=== PATIENT | male | born 1925 | race Caucasian/White ===

== ENCOUNTER 2017-02-03 01:27 | Inpatient (IN) | payer OTHER, BC ==
[2017-02-03] VITALS (9 sets, daily range): BP systolic 116–144; BP diastolic 62–85
[~2017-02-03] VITALS: Ht 165.1 cm; Wt 74.3 kg
[~2017-02-03 01:27] MED LIST: ATENOLOL25 MG PO; ATORVASTATIN CA20 MG PO; B COMPLETE1 EACH PO; BACTRIM,SEPT1 TABLET PO; COLACE100 MG PO; FISH OIL 1,0001 EAC7 PO; FLOMAX0.4 MG PO; HYDROCODON-ACE1 EAC7 PO; LO-DOSE ASPIRIN81 M1 PO; NORCO 5/3251 TABLET PO; PRESERVISION A1 EAC2 PO; TAMSULOSIN HCL0.4 MG PO
[2017-02-03 02:18] LABS: HEMATOCRIT 23.1 % (38.0-50.0); MCH 30.9 PG (29.0-34.0); MCHC 33.3 G/DL (30.0-36.0); MCV 92.8 FL (86-99); MEAN PLAT.VOLUME 10.9 uM^3 (9.0-12.4); PLATELET COUNT 179 K/uL (156-360); RBC DIS.WIDTH-CV 13.5 % (11.8-14.6); RBC DIS.WIDTH-SD 46.1 % (39-53); RED BLOOD COUNT 2.49 M/uL (4.00-5.50); WHITE BLOOD COUNT 8.7 K/uL (4.1-10.2)
[2017-02-03 02:30] LABS: CHLORIDE 108 mEq/L (99-109)
[2017-02-03 02:31] LABS: POTASSIUM 3.1 mEq/L (3.7-5.4); SODIUM 142 mEq/L (136-147)
[2017-02-03 02:32] LABS: GLUCOSE 118 mg/dL (70-99)
[2017-02-03 02:34] LABS: ANION GAP 10 MEQ/L (2-14)
[2017-02-03 02:36] LABS: GFR ESTIMATE (CALCULATED) 55 mL/min/
[2017-02-03 02:37] LABS: UREA NITROGEN (BUN) 24 mg/dL (9-23)
[2017-02-03 02:53] LABS: PROTHROMBIN TIME 11.9 SEC (10.2-12.9)
[2017-02-03 02:55] LABS: PTT 26.5 SEC (25-37)
[2017-02-03 02:59] LABS: TOTAL BILIRUBIN 0.6 mg/dL (0.0-1.0)
[2017-02-03 03:00] LABS: ALKALINE PHOSPHATASE 64 IU/L (3-129)
[2017-02-03 03:03] LABS: DIRECT BILIRUBIN 0.2 mg/dL (0.0-0.3)
[2017-02-03 03:04] LABS: LIPASE 20 U/L (1.0-51.0)
[2017-02-03 03:07] LABS: TROP-I INTERPRETATION NEGATIVE; TROPONIN-I < 0.01 ng/mL (0.0-0.30)
[2017-02-03] MEDS ORDERED: MUPIROCIN15 GM TP (05:55)
[2017-02-03] MEDS ORDERED: PROSCAR5 MG PO (06:31)
[2017-02-03] MEDS ORDERED: SEROQUEL12.5 MG PO (06:33)
[2017-02-03] MEDS ORDERED: CALCIUM 500 +1 EACH PO (06:33)
[2017-02-03] MEDS ORDERED: CASODEX50 MG PO (06:34)
[2017-02-03] MEDS ORDERED: CALCIUM 250+D1 EACH PO (06:36)
[2017-02-03 13:21] LABS: HEMATOCRIT 29.3 % (38.0-50.0); MCV 92.4 FL (86-99)
[2017-02-03 20:22] LABS: HEMATOCRIT 27.6 % (38.0-50.0); MCV 91.4 FL (86-99)
[2017-02-04 03:53] VITALS: BP 102/61
[2017-02-04 06:27] LABS: HEMATOCRIT 27.4 % (38.0-50.0); MCH 30.8 PG (29.0-34.0); MCHC 33.2 G/DL (30.0-36.0); MCV 92.9 FL (86-99); PLATELET COUNT 162 K/uL (156-360); RBC DIS.WIDTH-CV 14.8 % (11.8-14.6); RBC DIS.WIDTH-SD 50.3 % (39-53); RED BLOOD COUNT 2.95 M/uL (4.00-5.50); WHITE BLOOD COUNT 9.8 K/uL (4.1-10.2)
[2017-02-04 06:58] LABS: ANION GAP 6 MEQ/L (2-14); CHLORIDE 112 MEQ/L (99-109); GFR ESTIMATE (CALCULATED) > 59 mL/min/; GLUCOSE 103 mg/dL (70-99); SAMPLE HEMOLYSIS CHECK 0; SAMPLE ICTERIC CHECK 0; SAMPLE LIPEMIA CHECK 0; SODIUM 144 MEQ/L (136-147); UREA NITROGEN (BUN) 12 mg/dL (9-23)
[2017-02-04 06:59] LABS: POTASSIUM 4.3 MEQ/L (3.7-5.4)
[2017-02-04 07:48] VITALS: BP 120/61
[2017-02-04 11:36] LABS: HEMATOCRIT 28.9 % (38.0-50.0); MCV 93.2 FL (86-99)
[2017-02-04 12:04] VITALS: BP 91/51
[2017-02-04 16:07] VITALS: BP 133/67
[2017-02-04 20:41] LABS: HEMATOCRIT 27.6 % (38.0-50.0); MCV 93.2 FL (86-99)
[2017-02-04 20:56] LABS: CHLORIDE 111 mEq/L (99-109); SODIUM 144 mEq/L (136-147)
[2017-02-04 20:58] LABS: GLUCOSE 101 mg/dL (70-99)
[2017-02-04 20:59] LABS: ANION GAP 8 MEQ/L (2-14)
[2017-02-04 21:02] LABS: GFR ESTIMATE (CALCULATED) > 59 mL/min/
[2017-02-04 21:03] LABS: UREA NITROGEN (BUN) 12 mg/dL (9-23)
[2017-02-04 23:10] VITALS: BP 108/58
[2017-02-05 08:16] VITALS: BP 148/73
[2017-02-05 08:58] LABS: HEMATOCRIT 29.3 % (38.0-50.0); MCHC 32.8 G/DL (30.0-36.0); MCV 91.6 FL (86-99); MEAN PLAT.VOLUME 10.9 uM^3 (9.0-12.4); PLATELET COUNT 198 K/uL (156-360); RBC DIS.WIDTH-CV 14.4 % (11.8-14.6); RBC DIS.WIDTH-SD 48.6 % (39-53); WHITE BLOOD COUNT 8.3 K/uL (4.1-10.2)
[2017-02-05 16:30] VITALS: BP 143/62
[2017-02-05 23:06] VITALS: BP 144/67
[2017-02-06 06:20] LABS: HEMATOCRIT 27.8 % (38.0-50.0); MCH 30.4 PG (29.0-34.0); MCHC 33.5 G/DL (30.0-36.0); MCV 90.8 FL (86-99); MEAN PLAT.VOLUME 10.6 uM^3 (9.0-12.4); PLATELET COUNT 186 K/uL (156-360); RBC DIS.WIDTH-CV 14.1 % (11.8-14.6); RED BLOOD COUNT 3.06 M/uL (4.00-5.50); WHITE BLOOD COUNT 8.2 K/uL (4.1-10.2)
[2017-02-06 08:01] VITALS: BP 149/70
[2017-02-06 16:22] VITALS: BP 132/81
[2017-02-07 05:54] LABS: HEMATOCRIT 28.4 % (38.0-50.0); IMM.RETIC FRACTION 25.7 % (3-19); MCH 29.8 PG (29.0-34.0); MCHC 32.7 G/DL (30.0-36.0); MEAN PLAT.VOLUME 10.7 uM^3 (9.0-12.4); PLATELET COUNT 212 K/uL (156-360); RBC DIS.WIDTH-CV 13.8 % (11.8-14.6); RBC DIS.WIDTH-SD 45.9 % (39-53); RED BLOOD COUNT 3.12 M/uL (4.00-5.50); RETIC HGB EQUIVALENT 28.9 (28-36); RETICULOCYTE COUNT 3.1 % (0.5-1.8); WHITE BLOOD COUNT 8.2 K/uL (4.1-10.2)
[2017-02-07 06:19] LABS: PREALBUMIN 12.4 mg/dL (10-40)
[2017-02-07 07:38] LABS: ERTH.SED.RATE 7 MM/HR (0-20)
[2017-02-07 07:41] VITALS: BP 143/92
[2017-02-07 08:14] LABS: FERRITIN 20 NG/ML (22-322)
[2017-02-07 08:28] LABS: GFR ESTIMATE (CALCULATED) > 59 mL/min/; MAGNESIUM 1.9 mg/dl (1.3-2.7); POTASSIUM 3.6 MEQ/L (3.7-5.4); UREA NITROGEN (BUN) 6 mg/dL (9-23)
[2017-02-07 15:53] VITALS: BP 167/94
[2017-02-07 23:22] VITALS: BP 140/89
[2017-02-08 03:34] VITALS: BP 160/82
[2017-02-08 06:11] LABS: HEMATOCRIT 30.6 % (38.0-50.0); MCH 29.3 PG (29.0-34.0); MCHC 32.7 G/DL (30.0-36.0); MCV 89.7 FL (86-99); MEAN PLAT.VOLUME 10.7 uM^3 (9.0-12.4); NRBC (%) 0.1 /100 WBC (0-0); PLATELET COUNT 247 K/uL (156-360); RBC DIS.WIDTH-CV 13.5 % (11.8-14.6); RBC DIS.WIDTH-SD 44.2 % (39-53); RED BLOOD COUNT 3.41 M/uL (4.00-5.50); WHITE BLOOD COUNT 14.1 K/uL (4.1-10.2)
[2017-02-08 06:35] LABS: ANION GAP 13 MEQ/L (2-14); CHLORIDE 108 MEQ/L (99-109); GFR ESTIMATE (CALCULATED) > 59 mL/min/; GLUCOSE 85 mg/dL (70-99); POTASSIUM 3.5 MEQ/L (3.7-5.4); SAMPLE HEMOLYSIS CHECK 0; SAMPLE ICTERIC CHECK 0; SAMPLE LIPEMIA CHECK 0; SODIUM 144 MEQ/L (136-147); UREA NITROGEN (BUN) 8 mg/dL (9-23)
[2017-02-08 07:58] LABS: MAGNESIUM 1.8 mg/dl (1.3-2.7)
[2017-02-08 08:12] VITALS: BP 142/80
[2017-02-08 08:17] LABS: TROP-I INTERPRETATION NEGATIVE; TROPONIN-I 0.08 ng/mL (0.0-0.30)
[2017-02-08] MEDS ORDERED: DUREZOL 0.100 DROP/5 LEFT EYE (15:36)
[2017-02-08 15:55] VITALS: BP 154/75
[2017-02-08 23:30] VITALS: BP 119/67
[2017-02-09 04:27] VITALS: BP 137/83
[2017-02-09 08:01] VITALS: BP 140/77
[2017-02-09 08:37] LABS: HEMATOCRIT 29.1 % (38.0-50.0); MCH 30.4 PG (29.0-34.0); MCHC 33.7 G/DL (30.0-36.0); MCV 90.4 FL (86-99); MEAN PLAT.VOLUME 10.7 uM^3 (9.0-12.4); PLATELET COUNT 241 K/uL (156-360); RBC DIS.WIDTH-CV 13.6 % (11.8-14.6); RBC DIS.WIDTH-SD 45.2 % (39-53); RED BLOOD COUNT 3.22 M/uL (4.00-5.50); WHITE BLOOD COUNT 15.1 K/uL (4.1-10.2)
[2017-02-09 11:55] VITALS: BP 133/73
[2017-02-09 13:38] LABS: ANION GAP 11 MEQ/L (2-14); CHLORIDE 108 MEQ/L (99-109); GFR ESTIMATE (CALCULATED) > 59 mL/min/; GLUCOSE 136 mg/dL (70-99); POTASSIUM 3.7 MEQ/L (3.7-5.4); SAMPLE HEMOLYSIS CHECK 0; SAMPLE ICTERIC CHECK 0; SAMPLE LIPEMIA CHECK 0; SODIUM 141 MEQ/L (136-147); UREA NITROGEN (BUN) 15 mg/dL (9-23)
[2017-02-09 16:31] VITALS: BP 136/77
[2017-02-09 20:05] VITALS: BP 141/75
[2017-02-09 23:51] VITALS: BP 143/79
[2017-02-10 04:12] VITALS: BP 126/70
[2017-02-10 08:12] VITALS: BP 137/78
[2017-02-10 08:45] LABS: COLOR BLOODY ((YELLOW)); LEUKOCYTES TRACE
[2017-02-10 08:53] LABS: ADD MIUA? YES; BILIRUBIN NEGATIVE; BLOOD LARGE; GLUCOSE (STRIP) NEGATIVE; KETONES 80; NITRITE NEGATIVE; PROTEIN (STRIP) 100; UROBILINOGEN 0.2 MG/DL (0.2-1.0)
[2017-02-10 08:54] LABS: RED BLOOD CELLS TNTC /HPF (0-5)
[2017-02-10 11:33] VITALS: BP 143/71
[2017-02-10 15:52] VITALS: BP 154/79
[2017-02-10 20:21] VITALS: BP 137/81
[2017-02-10 23:46] VITALS: BP 155/72
[2017-02-11 07:00] LABS: HEMATOCRIT 28.1 % (38.0-50.0); MCH 31.6 PG (29.0-34.0); MCHC 34.5 G/DL (30.0-36.0); MCV 91.5 FL (86-99); MEAN PLAT.VOLUME 10.7 uM^3 (9.0-12.4); PLATELET COUNT 262 K/uL (156-360); RBC DIS.WIDTH-SD 46.6 % (39-53); RED BLOOD COUNT 3.07 M/uL (4.00-5.50); WHITE BLOOD COUNT 11.6 K/uL (4.1-10.2)
[2017-02-11 07:42] VITALS: BP 129/71
[2017-02-11 07:56] LABS: ANION GAP 8 MEQ/L (2-14); CHLORIDE 113 MEQ/L (99-109); GFR ESTIMATE (CALCULATED) > 59 mL/min/; GLUCOSE 100 mg/dL (70-99); POTASSIUM 3.2 MEQ/L (3.7-5.4); SAMPLE HEMOLYSIS CHECK 0; SAMPLE ICTERIC CHECK 0; SAMPLE LIPEMIA CHECK 0; SODIUM 147 MEQ/L (136-147); UREA NITROGEN (BUN) 21 mg/dL (9-23)
[2017-02-11 11:57] LABS: MAGNESIUM 2.2 mg/dl (1.3-2.7)
[2017-02-11 15:40] VITALS: BP 129/64
[2017-02-11 23:37] VITALS: BP 146/69
[2017-02-12 03:59] VITALS: BP 146/72
[2017-02-12 08:12] VITALS: BP 149/77
[2017-02-12 08:37] LABS: HEMATOCRIT 29.3 % (38.0-50.0); MCH 30.7 PG (29.0-34.0); MCHC 33.4 G/DL (30.0-36.0); MCV 91.8 FL (86-99); MEAN PLAT.VOLUME 10.5 uM^3 (9.0-12.4); PLATELET COUNT 282 K/uL (156-360); RBC DIS.WIDTH-CV 14.3 % (11.8-14.6); RBC DIS.WIDTH-SD 47.9 % (39-53); RED BLOOD COUNT 3.19 M/uL (4.00-5.50)
[2017-02-12 09:09] LABS: ANION GAP 9 MEQ/L (2-14); CHLORIDE 111 MEQ/L (99-109); GFR ESTIMATE (CALCULATED) > 59 mL/min/; GLUCOSE 101 mg/dL (70-99); POTASSIUM 3.3 MEQ/L (3.7-5.4); SAMPLE HEMOLYSIS CHECK 0; SAMPLE ICTERIC CHECK 0; SAMPLE LIPEMIA CHECK 0; SODIUM 147 MEQ/L (136-147); UREA NITROGEN (BUN) 14 mg/dL (9-23)
[2017-02-12 12:08] VITALS: BP 126/69
[2017-02-12 15:42] VITALS: BP 141/78
[2017-02-12 19:51] VITALS: BP 144/86
[2017-02-13 04:01] VITALS: BP 147/79
[2017-02-13 08:00] VITALS: BP 142/89
[2017-02-13 11:27] LABS: MAGNESIUM 2.1 mg/dl (1.3-2.7)
[2017-02-13 12:10] VITALS: BP 116/80
[2017-02-13 12:16] LABS: ANION GAP 7 MEQ/L (2-14); CHLORIDE 110 MEQ/L (99-109); GFR ESTIMATE (CALCULATED) > 59 mL/min/; GLUCOSE 107 mg/dL (70-99); POTASSIUM 3.5 MEQ/L (3.7-5.4); SAMPLE HEMOLYSIS CHECK 0; SAMPLE ICTERIC CHECK 0; SAMPLE LIPEMIA CHECK 0; SODIUM 146 MEQ/L (136-147); UREA NITROGEN (BUN) 9 mg/dL (9-23)
[2017-02-13 15:59] VITALS: BP 125/63
[2017-02-13 19:30] VITALS: BP 121/63
[2017-02-14 03:17] VITALS: BP 151/87
[2017-02-14 08:38] VITALS: BP 131/64
[2017-02-14 12:13] VITALS: BP 131/62
[2017-02-14 19:30] VITALS: BP 147/78
[2017-02-14 23:30] VITALS: BP 155/82
[2017-02-15 04:45] VITALS: BP 136/74
[2017-02-15 08:07] VITALS: BP 128/82
[2017-02-15 11:58] VITALS: BP 111/74
[2017-02-15 15:37] VITALS: BP 118/58
[2017-02-15 19:45] VITALS: BP 118/71
[2017-02-15 23:21] VITALS: BP 136/70
[2017-02-16 04:33] VITALS: BP 125/77
[2017-02-16 08:15] VITALS: BP 101/68
[2017-02-16 08:27] LABS: HEMATOCRIT 30.3 % (38.0-50.0); MCH 30.7 PG (29.0-34.0); MCHC 33.3 G/DL (30.0-36.0); MCV 92.1 FL (86-99); MEAN PLAT.VOLUME 10.4 uM^3 (9.0-12.4); PLATELET COUNT 312 K/uL (156-360); RBC DIS.WIDTH-CV 15.2 % (11.8-14.6); RBC DIS.WIDTH-SD 49.2 % (39-53); RED BLOOD COUNT 3.29 M/uL (4.00-5.50); WHITE BLOOD COUNT 11.1 K/uL (4.1-10.2)
[2017-02-16 08:47] LABS: ANION GAP 7 MEQ/L (2-14); CHLORIDE 108 MEQ/L (99-109); SAMPLE HEMOLYSIS CHECK 0; SAMPLE ICTERIC CHECK 0; SAMPLE LIPEMIA CHECK 0; SODIUM 146 MEQ/L (136-147)
[2017-02-16 08:53] LABS: GFR ESTIMATE (CALCULATED) > 59 mL/min/; GLUCOSE 97 mg/dL (70-99); UREA NITROGEN (BUN) 7 mg/dL (9-23)
[2017-02-16 11:29] VITALS: BP 102/52
[2017-02-16] MEDS ORDERED: VERAPAMIL HCL180 MG PO (13:12)
[2017-02-16 15:25] VITALS: BP 120/79
== END 2017-02-16 15:48 | disposition home or self-care (01) | DRG 713 ==
LOC: EME 01:27 → 3EAST 05:35 → EDOF 05:35 → ENRESERV 05:36 → 3EAST 07:13
PROVIDERS: Emergency Medicine; Hospitalist; Internal Medicine; Internal Medicine Hematology & Oncology; Physician Assistant
PROC: 30233N1 Transfusion of Nonautologous Red Blood Cells into Peripheral Vein, Percutaneous Approach (ICD-10-PCS; principal; 2017-02-03)
PROC: 0VB08ZZ Excision of Prostate, Via Natural or Artificial Opening Endoscopic (ICD-10-PCS; 2017-02-03)
DX: C61 Malignant neoplasm of prostate (principal); F02.81 Dementia in other diseases classified elsewhere, unspecified severity, with behavioral disturbance; D62 Acute posthemorrhagic anemia; R31.0 Gross hematuria; N40.0 Benign prostatic hyperplasia without lower urinary tract symptoms; I10 Essential (primary) hypertension; F05 Delirium due to known physiological condition; J98.11 Atelectasis; E78.5 Hyperlipidemia, unspecified; R33.9 Retention of urine, unspecified; I45.10 Unspecified right bundle-branch block; G30.9 Alzheimer's disease, unspecified; E87.6 Hypokalemia; F01.50 Vascular dementia, unspecified severity, without behavioral disturbance, psychotic disturbance, mood disturbance, and anxiety; D72.829 Elevated white blood cell count, unspecified; N32.89 Other specified disorders of bladder; R00.0 Tachycardia, unspecified; Z92.3 Personal history of irradiation; Z80.42 Family history of malignant neoplasm of prostate; Z79.899 Other long term (current) drug therapy; Z79.82 Long term (current) use of aspirin; Z90.79 Acquired absence of other genital organ(s); Z87.442 Personal history of urinary calculi; Z85.46 Personal history of malignant neoplasm of prostate
CPT/HCPCS: 70450; 71010; 80048; 80048 91; 80076; 81003; 82565; 82607; 82728; 82746; 83690; 83735; 84132; 84134; 84484; 84520; 85014; 85018; 85027; 85045; 85610; 85651; 85730; 86140; 86850; 86900; 86901; 86920; 87040; 87086; 93005; 94799; 97530 GP; 99281; 99285; J0330; J1580; J1630; J2060; J2270; J3010; J3480; J3486; J7030; J7050; J7120; P9016; Q0138; S0028